=== PATIENT | male | born 1960 | race Caucasian/White ===

== ENCOUNTER 2019-08-20 09:00 | Day surgery (SDC) | payer OTHER ==
[2019-08-19 14:53] VITALS: BMI 33.1
[2019-08-20 11:35] VITALS: TEMP 98.3
[2019-08-20 12:00] VITALS: BP 111/78; PULSE 69
--- NOTE | 2019-08-23 15:37 | PATH ---
Surgical Pathology Report Patient Name: TERRA CHATTERJEE [facility]. Rec. #: [id number] /Age/Gender: 1960 (Age: 59) / M Account: [id number] Location: [facility] Taken: 08/20/2019 Received: 08/20/2019 Reported: 08/23/2019 Physicians: Ray Henderson M.D. Specimen(s) Received A: DUODENUM, SECOND PORTION AND BULB B: GASTRIC ANTRUM C: GE JUNCTION D: SIGMOID POLYPS Clinical History Occult bleeding, gastric cancer screening Postoperative diagnosis: Erosive gastritis, duodenitis, duodenal ulcer, diverticulosis, sigmoid polyps, hemorrhoids Final Diagnosis A. DUODENUM, SECOND PORTION AND BULB, BIOPSY: DUODENAL MUCOSA WITH MODERATE TO SEVERE ACUTE AND CHRONIC DUODENITIS. B. GASTRIC ANTRUM, BIOPSY: GASTRIC ANTRAL MUCOSA WITH SEVERE CHRONIC ACTIVE GASTRITIS. IMMUNOHISTOCHEMICAL STAIN FOR H. PYLORI IS POSITIVE (NUMEROUS). C. GE JUNCTION BIOPSY: SQUAMOCOLUMNAR MUCOSA WITH MILD CHRONIC INFLAMMATION AND CHANGES OF MODERATE REFLUX ESOPHAGITIS. NO INTESTINAL METAPLASIA OR DYSPLASIA IDENTIFIED. D. SIGMOID COLON, POLYPS, POLYPECTOMY: TUBULAR ADENOMA(S). Electronically Signed Mis Holcomb M.D. Gross Description A. Received in formalin, labeled "biopsy bulb and second portion of duodenum" are 3 ag, irregular portions of soft tissue ranging from 0.4-0.6 cm. in greatest dimension. The specimens are submitted in toto in one cassette. B. Received in formalin, labeled "biopsy gastric antrum" are 3 ag, irregular portions of soft tissue ranging from 0.3-0.5 cm. in greatest dimension. The specimens are submitted in toto in one cassette. C. Received in formalin, labeled "biopsy GE junction" are 3 ag, irregular portions of soft tissue ranging from 0.3-0.4 cm. in greatest dimension. The specimens are submitted in toto in one cassette. D. Received in formalin, labeled "sigmoid polyps" are 4 ag, irregular portions of soft tissue ranging from 0.2-0.4 cm. in greatest dimension. The specimens are submitted in toto in one cassette. DL/08/20/2019 saudi/08/20/2019
== END 2019-08-20 12:21 | disposition home or self-care (01) ==
LOC: JASU-ENDO 09:00
PROVIDERS: ATTEND Internal Medicine Gastroenterology
PROC: 0DBN8ZX Excision of Sigmoid Colon, Via Natural or Artificial Opening Endoscopic, Diagnostic (ICD-10-PCS; principal; 2019-08-20 09:45)
DX: Z12.11 Encounter for screening for malignant neoplasm of colon (principal); K92.1 Melena; K64.8 Other hemorrhoids; K57.30 Diverticulosis of large intestine without perforation or abscess without bleeding; D12.5 Benign neoplasm of sigmoid colon
CPT/HCPCS: 88305-TC; 88342-TC